=== PATIENT | female | born 1975 | race Caucasian/White ===

== ENCOUNTER 2020-09-09 12:08 | Inpatient (IN) | payer MEDICAID ==
[~2020-09-09] VITALS: Ht 165.1 cm; Wt 104.8 kg
[2020-09-09] MEDS ORDERED: LACTATED RINGERS 1,000 ML IV SCH (12:25)
[2020-09-09] MEDS ORDERED: CARBOPROST 250 MCG/ML AMP IM PRN (12:25)
[2020-09-09] MEDS ORDERED: METHYLERGONOVINE 0.2 MG/ML AMP IM PRN (12:25)
[2020-09-09 13:05] LABS: BASOPHILS % (AUTO) 0.5 % (0.0-2.0); EOSINOPHILS % (AUTO) 0.6 % (0.0-4.0); HEMATOCRIT 36.7 % (36-48); HEMOGLOBIN 12.3 g/dL (12.0-16.0); LYMPHOCYTES # (AUTO) 1.8 K/uL (2.5-16.5); MEAN CORPUSCULAR HEMOGLOBIN 30 pg (27-31); MEAN CORPUSCULAR HGB CONC 34 g/dL (33-37); MEAN CORPUSCULAR VOLUME 90.5 fL (80-94); MONOCYTES # (AUTO) 0.6 K/uL (0.8-1.0); MONOCYTES % (AUTO) 7.3 % (1.7-9.3); NEUTROPHILS # (AUTO) 5.7 K/uL (1.8-7.7); NEUTROPHILS % (AUTO) 69.6 % (42.2-75.2); PLATELET COUNT (AUTO) 236 K/uL (140-450); RED BLOOD CELL COUNT(AUTO) 4.05 MIL/uL (4.20-5.40); RED CELL DISTRIBUTION WIDTH 13.9 % (11.6-13.7); WHITE BLOOD COUNT (AUTO) 8.3 K/uL (4.8-10.8)
[2020-09-09 13:27] LABS: ALBUMIN 2.7 g/dL (3.4-5.0); ANION GAP 13.9 (8-16); CARBON DIOXIDE 23.1 mmol/L (21-32); CREATININE 0.7 mg/dL (0.6-1.3); TOTAL BILIRUBIN 0.4 mg/dL (0.0-1.0); URIC ACID 3.4 mg/dL (2.6-7.2)
[2020-09-09 13:33] LABS: APPEARANCE,URINE HAZY (CLEAR); BILIRUBIN,URINE NEGATIVE (NEGATIVE); BLOOD, URINE NEGATIVE (NEGATIVE); COLOR,URINE ORANGE (YELLOW); LEUKOCYTE ESTERASE ,URINE TRACE (NEGATIVE); NITRITE, URINE NEGATIVE (NEGATIVE); PH,URINE 5.5 (5.0-9.0); UGLUCOSE NEGATIVE (NEGATIVE)
[2020-09-09 15:02] LABS: RBC,URINE 0-5 /HPF (0-5)
[2020-09-09 15:19] LABS: URINE TOTAL PROTEIN 8.2 mg/dL (0-12)
[2020-09-09] MEDS ORDERED: B6/F1TAB PO (15:19)
[2020-09-09] MEDS ORDERED: MORPHINE SULFATE 5 MG/ML VIAL IVP PRN (15:40)
[2020-09-09] MEDS ORDERED: MISOPROSTOL 25 MCG TAB ONE (15:57)
[2020-09-09] MEDS: MISOPROSTOL 25 MCG TAB VG SCH ×2 (16:00→16:05)
[2020-09-10 08:09] LABS: HEPATITIS B SURFACE ANTIGEN Negative (Negative)
== END 2020-09-09 20:37 | disposition left against medical advice (07) | DRG 566 ==
LOC: MLD 12:08 → MFCC 12:37
PROVIDERS: ADMIT Obstetrics & Gynecology; ATTEND Obstetrics & Gynecology
DX: O16.3 Unspecified maternal hypertension, third trimester (principal); O24.913 Unspecified diabetes mellitus in pregnancy, third trimester; Z3A.40 40 weeks gestation of pregnancy; Z20.828 Contact with and (suspected) exposure to other viral communicable diseases; Z53.29 Procedure and treatment not carried out because of patient's decision for other reasons
CPT/HCPCS: 36415; 76815; 80053; 81001; 82570; 84550; 85025; 86592; 86762; 86886; 86900; 86901; 87086; 87340; J7120